=== PATIENT | female | born 2000 | race Caucasian/White ===

== ENCOUNTER 2023-01-29 13:06 | Outpatient (REF) | payer MEDICAID, SELFPAY | END 2023-01-29 13:07 | disposition home or self-care (01) | LOC: HO.LAB 13:06 | PROVIDERS: PCP Internal Medicine; Visit Provider Internal Medicine | DX: Z00.00 Encounter for general adult medical examination without abnormal findings (principal) | CPT/HCPCS: 36415; 86706 ==

== ENCOUNTER 2023-11-13 17:44 | Outpatient (REF) | payer MEDICAID, SELFPAY | END 2023-11-13 17:45 | disposition home or self-care (01) | LOC: HO.HHCLNP 17:44 | PROVIDERS: Visit Provider Internal Medicine | DX: J02.9 Acute pharyngitis, unspecified (principal) | CPT/HCPCS: 87070 ==

== ENCOUNTER 2023-11-20 09:06 | Outpatient (REF) | payer MEDICAID, SELFPAY ==
[2023-11-20 11:30] LABS: MANUAL DIFF FLAG NO
[2023-11-20 11:42] LABS: Basophils Percent Auto 0.3 % (0-2); Eosinophils Percent Auto 0.4 % (0-4); Hematocrit 36.3 % (37.0-47.0); Hemoglobin 11.5 g/dl (12.0-16.0); Imm Gran Abs Auto 0.02 X10*3/uL (0.00-0.03); Imm Gran Pct Auto 0.3 % (0.0-0.4); Lymphocytes Absolute Auto 2.1 X10*3/uL (1.2-4.9); Lymphocytes Percent Auto 30.4 % (20-40); Mean Corpuscular HGB Conc 31.7 g/dl (31.0-35.0); Mean Corpuscular Hemoglobin 25.3 pg (27.0-33.0); Mean Corpuscular Volume 79.8 fL (80.0-98.0); Mean Platelet Volume 9.4 fL (9.4-12.3); Monocytes Absolute Auto 0.4 X10*3/uL (0.1-1.2); Monocytes Percent Auto 5.8 % (2-11); Neutrophils Absolute Auto 4.4 x10*3/uL (2.0-8.3); Neutrophils Percent Auto 62.8 % (45-73); Platelet Count 459 X10*3/uL (160-400); Red Blood Count 4.55 X10*6/uL (4.20-5.50); Red Cell Distribution Width 14.9 % (11.0-16.0)
[2023-11-20 11:51] LABS: Estimated Average Glucose 134 mg/dL; Hemoglobin A1c % 6.3 % (<6.0)
[2023-11-20 12:11] LABS: HIV AB/AG Nonreactive (Nonreactive); HIV Num 1 0.05 S/CO (0.00-0.99); ~HepC Num1 0.08 S/CO (0.00-0.79); ~Hepatitis C Antibody Nonreactive (Nonreactive)
[2023-11-20 12:16] LABS: Alanine Aminotransferase 13 U/L (0-31); Albumin Level 4.3 g/dL (3.5-5.0); Alkaline Phosphatase 57 U/L (39-117); Anion Gap 9 (12-20); Aspartate Amino Transferase 12 U/L (5-31); Bilirubin Direct 0.2 mg/dL (0.0-0.5); Bilirubin Total 0.4 mg/dL (0.0-1.0); Blood Urea Nitrogen 10 mg/dL (9-16); Calcium 9.3 mg/dL (8.4-10.2); Carbon Dioxide 26 mmol/L (22-29); Chloride 106 mmol/L (96-108); Cholesterol 141 mg/dL (<200); Estimated Glomerular Filt Rate > 60; Glucose Random 107 mg/dL (60-115); HDL Cholesterol 43 mg/dL (>40); LDL Cholesterol Calculated 83 mg/dL (<100); Potassium 4.1 mmol/L (3.3-5.1); Sodium 137 mmol/L (135-145); TSH reflex Free T4 1.05 uIU/mL (0.32-4.0); Total Protein 8.2 g/dL (6.5-8.0); Triglycerides 77 mg/dL (<150); Vitamin D 25-OH Total 30.6 ng/mL (>30)
[2023-11-20 13:53] LABS: CT PCR NOT DETECTED (Not Detect.); NG PCR NOT DETECTED (Not Detect.)
== END 2023-11-20 09:07 | disposition home or self-care (01) ==
LOC: HO.HHCL 09:06
PROVIDERS: Visit Provider Internal Medicine
DX: Z00.00 Encounter for general adult medical examination without abnormal findings (principal)
CPT/HCPCS: 0353U; 36415; 80048; 80061; 80076; 82306; 83036; 84443; 85025; 86803; 87389

== ENCOUNTER 2023-12-12 16:44 | Outpatient (REF) | payer MEDICAID, SELFPAY ==
[2023-12-19 02:18] LABS: C. trachomatis RNA TMA NOT DETECTED (NOT DETECTED); N. gonorrhoeae RNA TMA NOT DETECTED (NOT DETECTED)
[2023-12-19 04:34] LABS: Trichomonas (NAAT) NOT DETECTED (NOT DETECTED)
== END 2023-12-12 16:45 | disposition home or self-care (01) ==
LOC: HO.HHCLNP 16:44
PROVIDERS: Visit Provider Internal Medicine
DX: Z12.4 Encounter for screening for malignant neoplasm of cervix (principal)
CPT/HCPCS: 36415; 87491; 87591; 87661; 88142

== ENCOUNTER 2023-12-30 09:09 | Outpatient (REF) | payer MEDICAID, SELFPAY ==
[2024-01-01 22:33] LABS: TS Negative Control Passed; TS Panel A 1; TS Panel B 0; TS Positive Control Passed; TSpotTB Negative (Negative)
== END 2023-12-30 09:10 | disposition home or self-care (01) ==
LOC: HO.HHCL 09:09
PROVIDERS: Visit Provider Internal Medicine
DX: Z11.1 Encounter for screening for respiratory tuberculosis (principal)
CPT/HCPCS: 36415; 86481

== ENCOUNTER 2024-04-06 15:03 | Outpatient (REF) | payer MEDICAID, SELFPAY ==
[2024-04-06 16:59] LABS: Iron 23 mcg/dL (30-160); Percent Iron Saturation 8 % (15-50); Total Iron Binding Capacity 280 mcg/dL (228-428); Unsaturated Iron Binding 257 ug/dL
[2024-04-07 04:37] LABS: Syphilis Screen Nonreactive (Nonreactive)
[2024-04-07 04:56] LABS: HIV AB/AG Nonreactive (Nonreactive); HIV Num 1 0.06 S/CO (0.00-0.99)
[2024-04-07 07:26] LABS: CT PCR NOT DETECTED (Not Detect.); NG PCR NOT DETECTED (Not Detect.)
== END 2024-04-06 15:04 | disposition home or self-care (01) ==
LOC: HO.HHCL 15:03
PROVIDERS: Internal Medicine; Visit Provider Advanced Practice Midwife
DX: Z11.3 Encounter for screening for infections with a predominantly sexual mode of transmission (principal); D50.0 Iron deficiency anemia secondary to blood loss (chronic); R30.0 Dysuria
CPT/HCPCS: 36415; 83540; 86780; 87086; 87147; 87389; 87491; 87591

== ENCOUNTER 2024-07-27 12:23 | Outpatient (REF) | payer MEDICAID, SELFPAY ==
[2024-07-27 14:06] LABS: Monotest Negative (Negative)
== END 2024-07-27 12:24 | disposition home or self-care (01) ==
LOC: HO.HHCL 12:23
PROVIDERS: Visit Provider Emergency Medicine
DX: J02.9 Acute pharyngitis, unspecified (principal)
CPT/HCPCS: 36415; 86308

== ENCOUNTER 2025-01-17 10:02 | Outpatient (REF) | payer MEDICAID, SELFPAY ==
[2025-01-17 11:32] LABS: Alanine Aminotransferase 14 U/L (0-31); Albumin Level 4.6 g/dL (3.5-5.0); Alkaline Phosphatase 56 U/L (39-117); Anion Gap 11 (12-20); Aspartate Amino Transferase 17 U/L (5-31); Bilirubin Total 0.4 mg/dL (0.0-1.0); Blood Urea Nitrogen 14 mg/dL (9-16); Calcium 9.4 mg/dL (8.4-10.2); Carbon Dioxide 25 mmol/L (22-29); Chloride 105 mmol/L (96-108); Cholesterol 143 mg/dL (<200); Estimated Glomerular Filt Rate > 60; Glucose Random 86 mg/dL (60-115); HDL Cholesterol 47 mg/dL (>40); LDL Cholesterol Calculated 79 mg/dL (<100); Potassium 3.9 mmol/L (3.3-5.1); Sodium 137 mmol/L (135-145); Total Protein 8.1 g/dL (6.5-8.0); Triglycerides 85 mg/dL (<150)
[2025-01-17 11:40] LABS: Microalbum/Creatinine Ratio Ur 5.6 ug/mg cr (<30)
== END 2025-01-17 10:03 | disposition home or self-care (01) ==
LOC: HO.HHCL 10:02
PROVIDERS: PCP Internal Medicine; Visit Provider Internal Medicine
DX: E11.9 Type 2 diabetes mellitus without complications (principal)
CPT/HCPCS: 36415; 80053; 80061; 82043; 82570

== ENCOUNTER 2025-05-31 17:29 | Outpatient (REF) | payer MEDICAID, SELFPAY ==
[2025-06-01 13:34] LABS: Bacterial Vaginosis PCR POSITIVE (Negative); Candida Group PCR NOT DETECTED (Not Detect); Candida glab krusei PCR NOT DETECTED (Not Detect); Trichomonas vaginalis PCR NOT DETECTED (Not Detect)
[2025-06-01 14:04] LABS: CT PCR NOT DETECTED (Not Detect.); NG PCR NOT DETECTED (Not Detect.)
--- OUTSIDE RECORDS SUMMARY | 2025-06-01 14:56 | XMS_ITS | Data Portability ---
Author Organization [place] - [facility], Allergy Address [address] [address] Assessment Encounter Date Assessment Date Assessment LastModified by Organization Details LastModified Time 09/01/2024 09/01/2024 Patient describes 5 episodes of tonsillitis in the past year with no significant previous pattern of chronic tonsillitis. Her episodes of infection are associated with swelling of the tonsil causing her some difficulty swallowing and breathing. Her examination today shows tonsils are 3+ in size. Offered her the opportunity to proceed with surgery or observation to determine if she develops chronic infections. She was agreeable to follow-up in 6 months to review her progress. If she continues to have further infections a surgery may be in her best interest [email or web address] Not available 09/01/2024 16:06:16 Plan of Treatment Reminders Order Date Submit Date Provider Last Modified By Organization Details Last Modified Time Details Appointments None record ed. Lab None record ed. Referral None record ed. Procedures None record ed. Surgeries None record ed. Imaging None record ed. Medication Orders None record ed. Patient TargetsNo targets recorded. Patient InstructionsNo instructions recorded. Reason for Referral None Reported. Problems Name Problem SNOMED Code Status Onset Date Resolution Date Notes Provider Name and Address Organization Details Recorded Time Bleeding from nose 180051388 Active 2022 [facility]; Note: Date Diagno sed: 023 12:27 PM (R04.0 ) Not Available [facility] 02:13:53 Recurrent acute tonsillitis 320961310 Active 2024 ADELITA HANEY MD [address] [address], [place], [address] , [facility] - [facility] 16:05:19 Problem Notes None recorded. Medical Equipment None Reported. Allergies No known drug allergies Medications Name Sig Start Date Stop Date Status Note LastModified by Organization Details LastModified Time amoxicillin 500 mg capsule TAKE 1 CAPSULE BY MOUTH TWICE DAILY FOR 10 DAYS 09/01 completed Not Available Not Available Not Available metformin 500 mg tablet TAKE 1 TABLET BY MOUTH TWICE DAILY IN THE MORNING AND IN THE EVENING WITH MEALS active Not Available Not Available No t Available Vitamin C 500 mg tablet TAKE 1 TABLET BY MOUTH EVERY OTHER DAY active Not Available Not Available No t Available azithromyci n 250 mg tablet TAKE 2 TABLETS BY MOUTH ON DAY 1, THEN TAKE 1 TABLET DAILY ON DAYS 2-5 09/01 completed Not Available Not Available Not Available fluconazole 150 mg tablet TAKE 1 TABLET BY MOUTH 1 TIME FOR 1 DOSE. 09/01 completed Not Available Not Available Not Available phentermine 15 mg capsule TAKE 1 CAPSULE BY MOUTH EVERY MORNING BEFORE BREAKFAST active Not Available Not Available No t Available penicillin V potassium 500 mg tablet TAKE 1 TABLET BY MOUTH THREE TIMES DAILY FOR 10 DAYS 09/01 completed Not Available Not Available Not Available metronidazo le 500 mg tablet TAKE 1 TABLET BY MOUTH TWICE DAILY FOR 7 DAYS. AVOID ALCOHOLIC BEVERAGES WHILE TAKING. 09/01 completed Not Available Not Available Not Available acetaminoph en 500 mg tablet TAKE 1 TABLET BY MOUTH EVERY 8 HOURS NEEDED FOR MILD PAIN OR FEVER active Not Available Not Available No t Available polymyxin B sulfate 10,000 unit-trimet hoprim 1 mg/mL eye drops INSTILL 1 DROP AFFECTED EYE(S) FOUR TIMES DAILY FOR 10 DAYS 02/26 completed Not Available Not Available Not Available ibuprofen 400 mg tablet TAKE 1 TABLET BY MOUTH EVERY 6 HOURS NEEDED FOR PAIN OR FEVER 09/01 completed Not Available Not Available Not Available ipratropium bromide 42 mcg (0.06 %) nasal spray INSTILL 1 SPRAY IN EACH NOSTRIL TWICE DAILY NEEDED FOR RHINITIS 09/01 completed Not Available Not Available Not Available bromphenira mine-pseudo ephedrine-D M 2 mg-30 mg-10 mg/5 mL oral syrup TAKE 5 ML BY MOUTH 4 TIMES A DAY IN THE MORNING, AT NOON, IN THE EVENING, AND AT BEDTIME NEEDED FOR ALLERGIES 09/01 completed Not Available Not Available Not Available loratadine 10 mg tablet TAKE 1 TABLET BY MOUTH EVERY DAY active Not Available Not Available No t Available Alcohol Prep Pads USE DIRECTED TWICE DAILY active Not Available Not Available No t Available ferrous gluconate 324 mg (38 mg iron) tablet TAKE 1 TABLET BY MOUTH EVERY OTHER DAY active Not Available Not Available No t Available FreeStyle Lite Strips TEST BLOOD SUGAR TWICE DAILY active Not Available Not Available No t Available FreeStyle Rye Lite kit TEST BLOOD SUGAR TWICE DAILY active Not Available Not Available No t Available Jada-Tussin 100 mg/5 mL oral liquid TAKE 10 ML BY MOUTH THREE TIMES DAILY IN THE MORNING, AT NOON, AND AT BEDTIME NEEDED FOR COUGH FOR UP TO 10 DAYS active Not Available Not Available No t Available TRUEplus Lancets 33 gauge TEST BLOOD SUGAR TWICE DAILY active Not Available Not Available No t Available Vitals Date Recorded Body height Body mass index (BMI) Body weight Provider Name and Address Organization Details Last Updated DateTime 09/01/2024 157.48 cm 35.7 kg/m2 06820.51 g Caron Long [place] - [facility] 09/01/2024 15:49:03 Social History None recorded. Functional Status None recorded. Mental Status None recorded. Family History Nothing Reported. Medical History No medical history recorded. Gynecological HistoryNo gynecological history recorded. Obstetrics History GPAL:G 0 P 0 0 0 0 Past Encounters Encounter ID Performer Location Encounter Start Date Encounter Closed Date Diagnosis/Indication Diagnosis SNOMED-CT Code Diagnosis ICD10 Code Diagnosis IMO Codes Diagnosis Note [id number] ADELITA HANEY MD [facility] [address] [address] 09/01/2024 15:32:20 09/01/2024 16:07:00 Recurrent acute tonsillitis 384358426 J03.91 Health Concerns Section Related Observation LastModified by Organization Detai ls LastModified Time None Recorded Concern Status LastModified by Organization Details LastModified Time None Recorded Advance Directives Directive None Recorded Payers Insurance Date Sequence Insurance Name Policy Number Policy Dc Covered Member ID Dc Member ID Guarantor Name 02/26/2025 1 [place] [facility] Arminda Bauer [id number] Arminda Bauer Notes Date Note Type Note Provider Name and Address Organization Details Recorded Time 09/01/2024 text/html ROS as noted in the HPI tonsillitis5 times in past year (July, October, November, January, Apr and Jul 2024)when gets infection tonsils swell to limit swallowing and breathing needs to sleep upright PV 06/17/23 Pretty Serrano epistaxis, cautery ADELITA HANEY MD [address] [place] [address], [phone], [place] - [facility] 09/01/2024 16:06:33 OBGyn Episode No OBEpisode recorded.
--- OUTSIDE RECORDS SUMMARY | 2025-06-01 14:56 | XMS_ITS | Clinical Summary ---
Author Organization [address] Address [address] [place] [phone] Phone Care Team Providers Care Facility Manager Name Role Phone Corrine Lane MD Primary Care Provide r Allergies No known active allergies Medications copper (ParaGard T 380A) 380 square mm IUD 1 Device by Intrauterine route Once. Active Encounters Date Type Department Care Team Description 04/27/2025 Telephone Obstetrics and Gynecology - [address] [phone] Val Fletcher CNM from Last 3 Months Immunizations Immunization Administration Dates Next Due Tdap Tetanus diptheria acell ular pertussis (Boostrix; Adacel) 7yo and older 03/28/2021 Surgical History Surgery Date Site/Laterality Comments WISDOM TOOTH EXTRACTION PROCEDURE: HISTORICAL WISDOM TEETH EXTRACTION OTHER SURGICAL HISTORY PROCEDURE: ---- OTHER ----; COMMENT: 5 years old; urinary reflux surgery Medical History Medical History Date Comments History of urinary reflux DX:His tory of urinary reflux; COMMENT: as a child Family History Medical History Relation Name Comments Other: pre-diabetic Mother Diabetes Paternal Grandfather Other: Downs Syndrome Sister Breast cancer Neg Hx Cancer of Small Bowel Neg Hx Colon cancer Neg Hx Kidney cancer Neg Hx Ovarian cancer Neg Hx Pancreatic cancer Neg Hx Uterine cancer Neg Hx Relation Name Status Comments Father Alive Maternal Grandfather Maternal Grandmother Mother Alive Paternal Grandfather Paternal Grandmother Alive Sister Alive Social History Tobacco Use Types Packs/Day Years Used Date Smoking Tobacco: Never Smokeless Tobacco: Never Alcohol Use Standard Drinks/Week Comments No 0 (1 standard drink = 0.6 oz pur e alcohol) Comments No Sex and Gender Information Value Date Recorded Sex Assigned at Not on file Legal Sex Female 3:32 PM EST Gender Identity Not on file Sexual Orientation Not on file Obstetrics History Last Filed Vital Signs Vital Sign Reading Time Taken Comments Blood Pressure 96/70 08/04/2024 10:06 AM EST Pulse 86 08/04/2024 10:06 AM EST Temperature - - Respiratory Rate - - Oxygen Saturation - - Inhaled Oxygen Concentration - - Weight 88.5 kg (195 lb) 08/04/2024 10:06 AM EST Height 154.9 cm (5' 1 ) 01/07/2024 10:32 AM EDT Body Mass Index 36.84 01/07/2024 10:32 AM EDT Plan of Treatment Health Maintenance Due Date Last Done Comments Diabetes: Annual GFR (Glomerular Filtration Rate) 2001 Diabetes: Annual Foot Exam 12/11/2011 Diabetes: Annual Retina Eye Exam 12/11/2011 Meningococcal B Vaccine (1 of 2 - Standard) 2017 Social Influencers of Health Screening 06/22/2024 Depression Screening 07/28/2024 Diabetes: Annual Urine Albumin-Creatinine Ratio (uACR) 08/04/2024 Diabetes: Blood Sugar Control Test (HGBA1C) 09/15/2024 03/15/2024, 09/28/2020 COVID-19 Vaccine ( season) 2025 09/25/2021, 04/16/2021, 03/27/2021 Influenza Vaccine (#1) 2025 , 08/02/2021, 05/17/2020, Additional history exists Gonorrhea/Chlamydia Screening 04/06/2025 04/06/2024, 01/07/2024 Cervical Cancer Screening: Pap Smear 01/06/2027 01/07/2024, 01/07/2024, 01/07/2024 Cholesterol Screening (Lipid Panel) 11/19/2028 11/20/2023 DTaP,Tdap,and Td Vaccines (8 - Td or Tdap) 03/28/2031 03/28/2021, 10/27/2013, 12/12/2005, Additional history exists RSV Immunization Adult Patients (1 - 1-dose 75+ series) 2076 HIB Vaccines Completed 01/03/2003, 05/29, 04/12/2002, Additional history exists Pneumococcal Vaccine: Pediatrics (0 to 5 Years) and At-Risk Patients (6 to 49 Years) Completed 01/03/2003, 06/21/2002, 04/12/2002, Additional history exists IPV Vaccines Completed 12/12/2005, 03/29, 04/12/2002, Additional history exists Varicella Vaccines Completed 2007, 01/03/2003 HPV Vaccines Completed 06/22/2014, 03/2014, 10/27/2013 Hepatitis A Vaccines Completed 08/21/2016, 02/07/20 Meningococcal ACWY Vaccine Completed 03/16/2018, MMR Vaccines Completed 04/13/2021, 11/25, 01/03/2003 Hepatitis B Vaccines Completed 12/25/2022, 06/17/2022, 05/17/2022, Additional history exists Hepatitis C Screening Completed 01/07/2024, 024 HIV Screening Completed 04/06/2024, 01/07/2024 RSV Immunization Patients Under 20 months Aged Out No longer eligible based on patient's age to complete this topic Procedures Procedure Name Priority Date/Time Associated Diagnosis Comments HEPATITIS C SCREENING Routine 01/07/2024 HIV SCREENING Routine 01/07/2024 PAP SMEAR Routine 01/07/2024 HM GONORRHEA/CHLAMYDIA SCRREENING Routine 01/07/2024 HEMOGLOBIN A1C Routine 09/28/2020 from Last 3 Months or Most Recently Relevant to Health Maintenance Results * HIV Screening (01/07/2024) HIV Screening Abstracted us Historical Provider HEALTH MAINTENANCE Final Result * Hepatitis C Screening (01/07/2024) HM Hepatitis C Screening Abstracted us Historical Provider HEALTH MAINTENANCE Final Result * Gonorrhea/Chlamydia Screening (01/07/2024) Gonorrhea/Chla mydia Screening Abstracted Historical Provider HEALTH MAINTENANCE Final Result * Pap smear (01/07/2024) 01/07/2024 Narrative HISTORICAL TESTING LAB RESULTING AGENCY - 01/12/2024 4:45 PM EDT [id number] THINPREP PAP, IMAGED: NEGATIVE FOR SQUAMOUS INTRAEPITHELIAL LESION AND MALIGNANCY. FUNGAL ORGANISMS MORPHOLOGICALLY CONSISTENT WITH TIFFANIE SPP. ML VILLAR(ASCP) (CASE ELECTRONICALLY SIGNED 01 12 2024) ADEQUACY: SATISFACTORY ENDOCERVICAL/TRANSFORMATION ZONE COMPONENT PRESENT. SOURCE: THINPREP PAP HPV IF ASCUS, CERVICAL, IMAGED CLINICAL INFORMATION: HPV ASCUS, LMP 12/31/23, COPPER IUD, [Z12.4] Lilliana MEYERS LAB CYTOLOGY ORDERABLES Fin al Result HISTORICAL TESTING LAB RESULTING AGENCY * Hemoglobin A1c (09/28/2020) Hemoglobin A1C 5.8 <=6.5 % Blood Venous blood specimen / Unknown Historical Provider LAB BLOOD ORDERABLES Willa l Result from Last 3 Months or Most Recently Relevant to Health Maintenance Insurance MEDICAID - [place] Care Teams Facility Manager Relationship Specialty Start Date End Date Corrine Lane MD [address] [phone] [facility] - General 02/04/23
== END 2025-05-31 17:30 | disposition home or self-care (01) ==
LOC: HO.HHCLNP 17:29
DX: Z20.2 Contact with and (suspected) exposure to infections with a predominantly sexual mode of transmission (principal); N89.8 Other specified noninflammatory disorders of vagina
CPT/HCPCS: 81515; 87491; 87591